=== PATIENT | male | born 1940 | race Caucasian/White ===

== ENCOUNTER → 2021-07-13 | Outpatient (CLI) | payer OTHER ==
[~2021-07-13] VITALS: Ht 182.9 cm; Wt 84.8 kg
== END ==
LOC: OPSV 13:58
DX: G35 Multiple sclerosis (principal); R29.898 Other symptoms and signs involving the musculoskeletal system
CPT/HCPCS: 96365; J2930; J7030

== ENCOUNTER → 2021-07-14 | Outpatient (CLI) | payer OTHER ==
[~2021-07-14] VITALS: Ht 182.9 cm; Wt 84.8 kg
== END ==
LOC: OPSV 14:00
DX: R53.1 Weakness (principal); G35 Multiple sclerosis
CPT/HCPCS: 96365; J2930; J7030

== ENCOUNTER → 2021-07-15 | Outpatient (CLI) | payer OTHER ==
[~2021-07-15] VITALS: Ht 182.9 cm; Wt 84.8 kg
== END ==
LOC: OPSV 13:34
DX: G35 Multiple sclerosis (principal); R53.1 Weakness; Z87.891 Personal history of nicotine dependence; E53.8 Deficiency of other specified B group vitamins
CPT/HCPCS: 96365; J2930; J7070

== ENCOUNTER → 2021-10-05 | Outpatient (CLI) | payer OTHER ==
[2021-10-05 10:50] LABS: RBC (AUTOMATED) 100 10^6 (0); WBC (AUTOMATED 1 10^3 (0-5); WBC (AUTOMATED 6 10^3 (0-5)
[2021-10-05 10:55] LABS: GLUCOSE,CSF 47 mg/dL (50-80); TOTAL PROTEIN,CSF 58 mg/dL (20-45)
[2021-10-08 14:13] LABS: CSF IGG INDEX 0.5 (0.0-0.7); CSF/SERUM ALB. INDEX 9 (0-8); IMMUNOGLOBULIN G, QN, SERUM 740 mg/dL (603-1613)
== END ==
LOC: RAD 08:21
PROVIDERS: Psychiatry & Neurology Neurology
DX: G35 Multiple sclerosis (principal)
CPT/HCPCS: 82040; 82784; 82945; 83873; 83916; 84157; 87015; 87070; 87116; 87205; 87210; 89051